=== PATIENT | male | born 1970 | race Caucasian/White ===

== ENCOUNTER 2019-03-15 23:44 | Emergency (ER) | payer SELFPAY ==
[~2019-03-15] VITALS: Ht 185.4 cm; Wt 120.7 kg
[2019-03-16 02:15] VITALS: BP 128/72
== END 2019-03-16 02:16 | disposition home or self-care (01) ==
LOC: ER 23:44
DX: E11.9 Type 2 diabetes mellitus without complications (principal); I10 Essential (primary) hypertension; Z76.0 Encounter for issue of repeat prescription; Z88.0 Allergy status to penicillin

== ENCOUNTER 2019-06-12 04:55 | Emergency (ER) | payer SELFPAY ==
[~2019-06-12] VITALS: Ht 175.3 cm; Wt 74.8 kg
[2019-06-12 05:09] VITALS: BP 156/99
[2019-06-12 05:42] LABS: Urine Bacteria FEW /hpf (None Seen); Urine Blood Negative /uL (Negative); Urine Hyaline Cast FEW /lpf (0 - 2); Urine Mucus FEW (None Seen); Urine Specific Gravity 1.024 (1.001-1.035); Urine WBC 1 /hpf (0 - 3)
== END 2019-06-12 06:53 | disposition left against medical advice (07) ==
LOC: ER 04:57
DX: R30.0 Dysuria (principal); Z53.21 Procedure and treatment not carried out due to patient leaving prior to being seen by health care provider
CPT/HCPCS: 81001